=== PATIENT | male | born 1940 | race African-American/Black ===

== ENCOUNTER 2017-01-28 10:58 | Emergency (ER) | payer OTHER, BC ==
[~2017-01-28] VITALS: Ht 193 cm; Wt 94.3 kg
[~2017-01-28 10:58] MED LIST: ALLERGY RELIEF180 MG PO; ASPIRIN81 M2 PO; AZOR 10-40 MG1 EACH PO; CIALIS20 MG PO; FISH OIL 1,0001 EAC5 PO; FLEXERIL PO; FLOMAX PO; HYDROCHLOROTHIA25 M1 PO; HYDROCODON-ACE1 EACH PO; INDOMETHACIN 5050 M1 PO; KLOR-CON 10 ER10 MEQ PO; NASONEX17 GM NASAL; OMEGA PO; TAMSULOSIN HCL0.4 M1 PO; TOPROL XL100 MG PO; [UNRECOGNIZED DRUG - OTHER] PO
[2017-01-28] MEDS ORDERED: METFORMIN HCL500 MG PO (11:22)
[2017-01-28] MEDS ORDERED: CYCLOBENZAPRINE5 MG PO (12:47)
== END 2017-01-28 13:00 | disposition home or self-care (01) ==
LOC: ER 10:58
DX: M54.42 Lumbago with sciatica, left side (principal); M48.06 Spinal stenosis, lumbar region; I10 Essential (primary) hypertension; Z90.49 Acquired absence of other specified parts of digestive tract

== ENCOUNTER 2017-02-08 02:41 | Inpatient (IN) | payer OTHER, BC ==
[2017-02-08] VITALS (10 sets, daily range): BP systolic 96–142; BP diastolic 52–102
[~2017-02-08] VITALS: Ht 188 cm; Wt 83.6 kg
--- NOTE | ~2017-02-08 | HC ---
[facility] [place] [address] CONSULTATION Name: CANDELARIO HI Room #: 211-P [facility] IN .R.#: [id number] Admission: 02/08/17 Attend Phys: Primo Kim MD Discharge: Date of : 42 Report #: [id number] THIS REPORT FOR: //name// CC: Primo Hercules REASON FOR CONSULTATION: I was asked to evaluate the patient concerning polyarthritis and possible infection. HISTORY OF PRESENT ILLNESS: The patient is a 76-year-old with a history of chronic low back pain, gout, had an epidural injection on 02/07/2017. On 02/08/2017 he had two grossly bloody stools which were painless. He had some GI bleeding about a month or so prior to this, which was a short-term. He became lightheaded and presented to the Emergency Room for further treatment. The epidural injection did his back pain. He had previous right colon resection for perforation in 1994. His initial hemoglobin was 10. He continued to have bloody stools and underwent endoscopy, which showed some mild gastritis along with ulcerative type colitis involving the hepatic flexure region. Biopsy showed nonspecific colitis. He subsequently has seized bleeding. Follow up from GI service was that this was a localized ischemic area from some constipation. CT scan of the abdomen showed no other intra-abdominal pathology. Subsequently, developed a temperature of 102.3 on the 02/15/2017. He had flare up of arthritis involving both knees and his feet. He underwent a needle aspiration of his right knee and steroid injection. Today feels better, no pain in the right knee, still has some in the left and moderate amount of pain still in his feet, mostly the first metatarsal region. He also received 2 doses of colchicine yesterday. Fluid analysis showed 10,000 WBCs, 87% neutrophils. Gram stain was negative. Cultures are negative at 24 hours, crystals was negative, protein was 2.7. Overall, feels better today. He is afebrile. REVIEW OF SYSTEMS: Notes no rash, cough, sputum, nausea, vomiting, abdominal pain, back pain, diarrhea, or dysuria. ALLERGIES: None known. MEDICATIONS: As noted on his NOV. He has had no recent antibiotics. PAST MEDICAL HISTORY: Prostate cancer, diabetes, hypertension, gout, colon resection, chronic back pain with spinal stenosis and degenerative arthritis. SOCIAL HISTORY: Nonsmoker, no significant alcohol intake. He is retired from a local [employer]. FAMILY HISTORY: Noncontributory. [address] [address] CONSULTATION Name: CANDELARIO HI Room #: 211-P [facility]#: [id number] Admission: 02/08/17 Attend Phys: Primo Kim MD Discharge: Date of : 42 Report #: [id number] PHYSICAL EXAMINATION: VITAL SIGNS: He is afebrile, hemodynamically stable. GENERAL: He is alert and cooperative and pleasant, in no acute distress. SKIN: Unremarkable. LYMPH: Unremarkable. HEENT: Unremarkable. CHEST: Clear. HEART: Regular. ABDOMEN: Soft and nontender. EXTREMITIES: 1+ effusion in both knees. He had limited range of motion involving the right knee. Left knee had full range of motion. He had tenderness in both first MTP joints and throughout is forefoot. Upper extremities were unremarkable. NEUROLOGIC: Normal. LABORATORY STUDIES: Sodium 138, potassium 4.0, bicarbonate 28, creatinine 1, hemoglobin 9.1, platelet count 428,000, white cell count was 12.2. Right knee fluid, Gram stain, no organisms. Culture is negative at 24 hours. Blood cultures are negative to date. X-ray of the knees showed narrowing of the joints. Biopsy of the stomach showed gastroenteritis. Biopsy of his colon showed area of ulceration and colitis. Did not have features of inflammatory bowel disease. IMPRESSION: I am suspecting this is flare of crystalline arthritis, despite the negative crystalline analysis. I find that the sensitivity with this test is less than optimal. I would continue treatment program for gout. Considering his recurring symptoms with he is a reasonable candidate for allopurinol going forward. I do not see any evidence of active infection considering this is polyarthritis. We will hold on any antibiotic treatment at this time. We will follow up on aspiration cultures. <ELECTRONICALLY SIGNED> By: Roni Allen MD 02/17/17 1322 1021 1320 Roni Allen MD /nt
--- NOTE | ~2017-02-08 | HC ---
[facility] [place] [address] CONSULTATION Name: CANDELARIO HI Room #: 211-P [facility] IN ..#: [id number] Admission: 02/08/17 Attend Phys: Primo Kim MD Discharge: Date of : 42 Report #: [id number] THIS REPORT FOR: //name// CC: Primo Hercules HISTORY OF PRESENT ILLNESS: The patient is a 76-year-old -Algerian male with prior history of colon cancer, rectal bleeding, had a couple of falls, thought to be related due to his rectal bleeding. He notes during the fall, he twisted his right knee. He has had further GI evaluation with EGD showing gastritis and Schatzki's ring, colonoscopy showing ileocolonic anastomosis and sigmoiditis. He appears to be doing well from a GI perspective with his hemoglobin remaining stable. Big issue for him now is significant pain of both knees and ankles. He notes that premorbidly he was ambulatory without gait aids, but after the falls, the twisting of the right knee and the various procedures within his hospital stay, he notes that the pain has significantly worsened. It involves both knees and both ankles. He thinks it is his gout acting up. He now is basically nonambulatory. PAST MEDICAL HISTORY: Includes history of some chronic low back pain, he has had prior epidural steroid injection. History of colon cancer, diabetes mellitus, BPH, gout, and arthritis. FAMILY HISTORY: Father, breast cancer; sister, breast cancer, pancreatic cancer, and malignant melanoma. HABITS: No history of tobacco or ETOH. SOCIAL HISTORY: Lives in a house with his , 2 steps in with 12 inside. Did not utilize gait aids and was noted to be independent with ADLs. REVIEW OF SYSTEMS: No complaints of chest pain, shortness of breath or abdominal discomfort. Main complaint is the pain involving his knees and his ankles. PHYSICAL EXAMINATION: GENERAL: He is a pleasant 76-year-old -Algerian male who appears somewhat younger than stated age. VITAL SIGNS: Temperature is 102.3, pulse 86, respirations 18, blood pressure is 128/75. HEENT: Appeared to be benign. Facies are symmetric. EXTREMITIES: Functional range of motion of both upper extremities without obvious focal weakness. He has good strength. In his lower extremities, he complained of suprapatellar pain. There is no actual swelling or obvious effusion. He does have definite pain in medial joint lines bilaterally. I could range his left knee more easily than his right. His right knee is very tender with knee range of motion and I could only flex him to about [address] [address] CONSULTATION Name: CANDELARIO HI Room #: 211-P [facility] IN ..#: [id number] Admission: 02/08/17 Attend Phys: Primo Kim MD Discharge: Date of : 42 Report #: [id number] before he had significant increased pain. He also has pain of both ankles. There was no actual swelling around either malleoli. He was diffusely tender. I could range his ankles, but he had pain not only involving the ankles, but involving the knees bilaterally. Functionally, he is moving slowly with sit to stand max assist. X-rays showed moderately severe tricompartmental osteoarthritis involving the left knee and the right knee. No acute fracture. Ankle x-ray showed some mild soft tissue swelling without evidence of acute ankle fracture or dislocation. Labs include uric acid, which was normal at 5.4. ASSESSMENT: A 76-year-old -Algerian male with the following problem list: 1. Acute febrile polyarthritis of both knees and ankles. He has a history of gout, but his uric acid is only 5.4. He notes he did twist that right knee during one of his falls and his symptoms are definitely worse involving the right knee than the left knee. He has moderately severe arthritis of his knees, but was nevertheless ambulatory prior to this acute event. Last white blood count was 11.9. 2. Prior history of colon cancer with rectal bleeding with GI workup as delineated above. 3. Acute renal failure, probable acute tubular necrosis noted to be resolving. 4. Hypertension. 5. Diabetes mellitus. 6. Benign prostatic hypertrophy. 7. History of chronic back pain with recent epidural steroid injection. 8. History of colon cancer with colon resection in 1994. PLAN: We will defer further diagnostic workup to primary care. We would certainly consider orthopedic consultation. Question of rheumatology would be helpful. We will add occupational therapy as already he has physical therapy involved. We will be glad to follow regarding his rehab therapy needs. By: 1708 0042 John Rodriguez MD /nt
--- NOTE | ~2017-02-08 | P ---
[facility] [place] [address] PROCEDURE REPORT Name: CANDELARIO HI Jayy Room #: 211-P [facility] IN M.R.#: [id number] Admission: 02/08/17 Attend Phys: Primo Kim MD Discharge: Date of : 42 Report #: [id number] THIS REPORT FOR: //name// CC: Primo Hercules DATE OF SERVICE: 02/13/2017 PROCEDURE: Flexible sigmoidoscopy with control of hemorrhage. INDICATION FOR PROCEDURE: Painless dark maroon stools per rectum, uncertain etiology. The patient had an ulcer in the sigmoid colon on previous flex sig. I am not certain what is bleeding, but flexible sigmoidoscopy is being performed because on the ongoing hematochezia and melena. Informed consent for this procedure was obtained prior to the administration of any medication. The risks of the procedure which include bleeding, perforation, infection, complications of sedation and the possibility I could miss something have been explained to the patient and he has indicated his consent by signing. Fentanyl 100 mcg and Versed 6 mg was slowly titrated before and during this procedure for patient comfort by the GI nursing staff under my direction. A digital rectal exam was performed and no abnormalities were palpated. The Tbricksn colonoscope was introduced through the anal sphincter and advanced under direct visualization to the 50 cm emma, as this is where the bleeding stopped, above that was brown stool. Findings are noted on withdrawal of the scope. I tried to clear out all blood from the descending colon and was successful in doing so. At 40 cm, there were multiple ulcerations that were white based, nonbleeding, one, however, had a visible vessel and it appeared to be oozing, so I bicapped it with a BICAP cautery system and washed it with a water jet and it was found to be stable. I came back and visualized it multiple times during the rest of the flexible sigmoidoscopy as I cleared the blood from the distal colon and rectum. To be certain that there was no other bleeding site and there was not. No other abnormalities were seen. Retroflex view in the rectum did not reveal any abnormalities. The scope was withdrawn. The patient went to the recovery area in stable condition. He tolerated the procedure well. IMPRESSION: Bleeding ulceration at 40 cm, bicapped as above successfully. There was no evidence of any further bleeding after that, hopefully that was the only site that the blood was coming from, I suspect this was probably a localized ischemia area that has now re-perfused as it looks pink and the mucosa looks more normal. Recommendations would be to try to avoid constipation, as this will only reoccur with pressure from hard stool on the mucosal lining. We will put him on some [address] [address] PROCEDURE REPORT Name: CANDELARIO HI Room #: 211-P [facility] IN M.R.#: [id number] Admission: 02/08/17 Attend Phys: Primo Kim MD Discharge: Date of : 42 Report #: [id number] Colace 1 p.o. b.i.d. and fiber supplements if necessary and he should be on a high fiber diet and drink 8 glasses of liquid a day. Thank you very much once again for allowing me to participate in his care, Dr. Kim. <ELECTRONICALLY SIGNED> By: Chana Sotomayor DO 02/14/17 0949 1750 0316 Chana Sotomayor DO /nt
--- NOTE | ~2017-02-08 | S ---
[facility] [place] [address] SURGICAL PATH RPT PROCEDURE Name: CANDELARIO HI Room #: 211-P ADM IN M.R.#: [id number] Admission: 02/08/17 Date of : 42 Discharge: Report #: [id number] Path Case #: [id number] PATHOLOGY REPORT COLLECTION DATE: 02/11/2017 RECEIVED DATE: 02/12/2017 SUBMITTING PHYS: Dr. Rodney Avalos OTHER PHYS: Dr. Dyllan Kim SPECIMEN(S) RECEIVED: A.Bx of gastritis B.Bx of sigmoid colitis * * * * * * * * * * * * FINAL DIAGNOSIS: A. "BX of gastritis", biopsy: - Gastric mucosa with mild reactive changes and mild chronic inflammation. - Negative H. pylori immunohistochemical stain (block A1); control reacted appropriately. B. "BX of sigmoid colitis", biopsy: - Colonic mucosa with reactive/hyperplastic changes, reactive appearing lymphoid aggregates and focal active colitis (see comment). COMMENT: Focal active colitis can be seen in resolving infectious type colitis, incidentally with bowel preparation and quiescent chronic idiopathic inflammatory bowel disease. No dysplasia is seen. Clinical and endoscopic correlation is recommended. PATHOLOGIST: Autumn Dye M.D. REPORT ELECTRONICALLY SIGNED BY: Autumn Dye M.D. DATE/TIME: 02/13/2017 13:45 * * * * * * * * * * * * GROSS PATHOLOGY: A. Received in formalin labeled "Candelario Hi, BX of gastritis," are 3 segments of vann soft tissue measuring 1.2 x 0.2 x 0.2 cm in aggregate dimensions and ranging from 0.2 to 0.5 cm in maximum dimension. The specimen is submitted entirely in cassette A1. B. Received in formalin labeled "Candelario Hi, BX of sigmoid colitis," are 2 segments of vann soft tissue measuring 1.0 x 0.2 x 0.2 cm in aggregate dimensions and ranging from 0.5 to 0.5 cm in maximum dimension. The specimen is submitted entirely in cassette B1. (SONDRA; 02/12/2017) [address] [place] [address] SURGICAL PATH RPT PROCEDURE Name: CANDELARIO HI Jayy Room #: 211-P [facility] IN M.R.#: [id number] Admission: 02/08/17 Date of : 42 Discharge: Report #: [id number] Path Case #: [id number] CLINICAL HISTORY: GI anemia INITIAL CPT CODE(S): A; 72258, 86625 B; 10105 Professional services performed by [facility] at [address], [place] [address] Technical services performed by [facility] at [address] [place] [address], [facility] [address] [place] [address]. [facility] [address] [address] PHONE: [phone] DIRECTOR: Dario Duran M.D. * * * END OF REPORT * * *
--- NOTE | ~2017-02-08 | HC ---
[facility] [place] [address] CONSULTATION Name: CANDELARIO HI Room #: 211-P [facility] IN ..#: [id number] Admission: 02/08/17 Attend Phys: Primo Kim MD Discharge: Date of : 42 Report #: [id number] THIS REPORT FOR: //name// CC: Primo Hercules DATE OF SERVICE: 02/16/2017 CHIEF COMPLAINT: Bilateral lower extremity pain at both knees and both ankles with probable gout and possible infection. HISTORY OF PRESENT ILLNESS: This 76-year-old gentleman has a previous history of gout, which has been untreated in the past. He also has a number of other medical problems. He fell 1 week ago spraining the right knee and right ankle. He was admitted for general malaise and weakness. His right lower extremity injuries were evaluated then with x-rays of the knee and ankle, which revealed no evidence of fracture, but moderate degenerative change. He has been recovering from his other more general medical issues, but is having ongoing lower extremity joint discomfort. At this time, he has some pain and swelling in both knees and both ankles. His symptoms are greater on the right side than on the left. He has had repeat x-rays of the right knee and ankle showing again no evidence of fracture. He has 1 episode of temperature elevation. His white count has been normal. At the time of my evaluation, he is resting fairly comfortably in a recliner. He is alert and oriented. He notes he does have generalized lower extremity discomfort mostly at the right knee and the right ankle with similar but less severe symptoms at the left knee and the left ankle. He notes symptoms are aggravated by movement or weightbearing. He is not having much discomfort in the upper extremities at this time. Objectively, the right knee demonstrates a sizeable knee effusion. There is some warmth, but no redness. There is some generalized joint irritability consistent with inflammation. There is minimal joint crepitus. The skin is intact. The right calf reveals no obvious swelling or bruising. There is no localized soft tissue tenderness. The ankle and foot revealed mild generalized edema. He does have some discomfort with movement of the ankle. There appears to be a mild knee effusion, but not nearly as significant as at the right knee. Findings would suggest some warmth, but no redness about the ankle. This seems consistent with synovitis and a joint effusion. He notes that his symptoms in the right lower leg and ankle are actually better today and he has been up with therapy, walking on the ankle with only moderate discomfort. The left lower extremity reveals similar findings at the knee and ankle, but less severe than on the right. There is a mild left knee joint effusion, but better range of motion and less discomfort. The skin is intact. The left ankle also reveals mild swelling and some generalized discomfort consistent with ankle synovitis. There is no obvious deformity or instability. Neurologic status in both lower extremities appeared to be normal. [address] [address] CONSULTATION Name: CANDELARIO HI Room #: 211-P [facility] IN ..#: [id number] Admission: 02/08/17 Attend Phys: Primo Kim MD Discharge: Date of : 42 Report #: [id number] X-rays of both knees and the right ankle have revealed no obvious fractures, but evidence of some degenerative change. IMPRESSION AND PLAN: In summary, this gentleman has a history of gout and had a minor traumatic injury 1 week ago. He now has diffuse symptoms in both knees and both ankles and findings seem most suggestive of a gouty flare. In addition, it is difficult to rule out infection, although this seems less likely to me. I think it is reasonable to get a fluid specimen for culture and for synovial fluid analysis and crystals. I think the best option would be to aspirate the right knee where this morning, he states he is most symptomatic and there is a large knee effusion. He has agreed and I will go ahead with joint aspiration and we will send the specimen for synovial fluid analysis, cell count, crystals and culture. I think we can probably go ahead with empiric injection of the right knee using 40 mg of Depo-Medrol today as well. We will see what the lab results and his subjective symptomatic response may be, which will guide further treatment. Thank you for allowing me to participate in his care. <ELECTRONICALLY SIGNED> By: John Ren MD 02/17/17 1051 1143 1734 John Ren MD /nt
--- NOTE | ~2017-02-08 | EKG ---
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
[~2017-02-08 02:41] MED LIST changes: +CYCLOBENZAPRINE5 MG PO; +METFORMIN HCL500 MG PO
[2017-02-08 03:04] LABS: ABSOLUTE NEUTROPHILS 9.5 thou/uL (1.4-8.2); BASOPHILS 0.4 % (0.0-2.0); EOSINOPHILS 0.1 % (0.0-3.0); HEMATOCRIT 30.3 % (42.0-52.0); HEMOGLOBIN 10.2 gm/dL (14.0-18.0); LYMPHOCYTES 12.8 % (24.0-44.0); MCH 30.6 pg (26.0-34.0); MCHC 33.7 g/dL (28.0-37.0); MCV 90.7 fL (80.0-100.0); PLATELET COUNT 304 thou/uL (150-400); POLYS 75.7 % (36.0-66.0); RBC 3.35 mil/uL (4.50-6.00); RDW 13.6 % (10.5-14.5); WBC 12.6 thou/uL (4.0-11.0)
[2017-02-08 03:05] LABS: MANUAL DIFF NO
[2017-02-08 03:13] LABS: ANION GAP 14 mmol/L (7-16); BUN 36 mg/dL (7-18); CALCIUM 8.8 mg/dL (8.5-10.1); CHLORIDE 97 mmol/L (98-107); CO2 24 mmol/L (21-32); CREATININE 2.9 mg/dL (0.7-1.3); GLUCOSE 319 mg/dL (74-106); POTASSIUM 3.2 mmol/L (3.5-5.1); SODIUM 135 mmol/L (136-145)
[2017-02-08 03:21] LABS: ALBUMIN 2.8 g/dL (3.4-5.0); ALKALINE PHOSPHATASE 128 U/L (46-116); APTT 27.1 Seconds (24.5-32.8); INR 1.2; NT-PRO BRAIN NAT PEPTIDE 394 pg/mL (<300); PROTIME 12.8 Seconds (9.3-11.4); SGOT 24 U/L (15-37); SGPT 33 U/L (30-65); TOTAL BILIRUBIN 0.5 mg/dL (<0.1-1.0); TOTAL PROTEIN 7.1 g/dL (6.4-8.2); TROPONIN-I < 0.04 ng/mL (<0.04-0.07)
[2017-02-08 08:24] LABS: MAGNESIUM 2.3 mg/dL (1.8-2.4)
[2017-02-08 10:10] LABS: HEMOGLOBIN 9.7 gm/dL (14.0-18.0)
[2017-02-08 16:49] LABS: HEMATOCRIT 25.4 % (42.0-52.0); HEMOGLOBIN 9.1 gm/dL (14.0-18.0)
[2017-02-09 03:29] LABS: BASOPHILS 0.1 % (0.0-2.0); HEMATOCRIT 25.7 % (42.0-52.0); HEMOGLOBIN 8.9 gm/dL (14.0-18.0); LYMPHOCYTES 11.9 % (24.0-44.0); MCHC 34.6 g/dL (28.0-37.0); MCV 89.5 fL (80.0-100.0); MONOCYTES 5.2 % (1.0-8.0); PLATELET COUNT 313 thou/uL (150-400); POLYS 82.8 % (36.0-66.0); RBC 2.87 mil/uL (4.50-6.00); RDW 13.5 % (10.5-14.5); WBC 9.7 thou/uL (4.0-11.0)
[2017-02-09 03:33] LABS: MANUAL DIFF NO
[2017-02-09 03:36] VITALS: BP 117/71
[2017-02-09 03:42] LABS: CALCIUM 8.2 mg/dL (8.5-10.1)
[2017-02-09 03:48] LABS: CREATININE 1.2 mg/dL (0.7-1.3)
[2017-02-09 08:00] VITALS: BP 127/75
[2017-02-09 11:30] VITALS: BP 128/63
[2017-02-09 15:50] VITALS: BP 131/72
[2017-02-09 20:35] VITALS: BP 145/75
[2017-02-09 23:06] VITALS: BP 155/83
[2017-02-10 03:01] LABS: HEMATOCRIT 22.8 % (42.0-52.0); MCH 31.4 pg (26.0-34.0); MCHC 35.2 g/dL (28.0-37.0); MCV 89.4 fL (80.0-100.0); RBC 2.55 mil/uL (4.50-6.00); RDW 13.4 % (10.5-14.5); WBC 7.2 thou/uL (4.0-11.0)
[2017-02-10 03:02] VITALS: BP 158/89
[2017-02-10 03:14] LABS: CALCIUM 8.1 mg/dL (8.5-10.1); CREATININE 0.9 mg/dL (0.7-1.3); POTASSIUM 3.2 mmol/L (3.5-5.1)
[2017-02-10 07:05] VITALS: BP 138/81
[2017-02-10 11:40] VITALS: BP 132/73
[2017-02-10 16:00] VITALS: BP 151/83
[2017-02-10 20:25] VITALS: BP 147/89
[2017-02-11] VITALS (9 sets, daily range): BP systolic 109–161; BP diastolic 59–93
[2017-02-11 05:16] LABS: HEMATOCRIT 24.4 % (42.0-52.0); HEMOGLOBIN 8.6 gm/dL (14.0-18.0); MCH 31.2 pg (26.0-34.0); MCHC 35.2 g/dL (28.0-37.0); MCV 88.8 fL (80.0-100.0); RBC 2.75 mil/uL (4.50-6.00); RDW 13.2 % (10.5-14.5); WBC 8.2 thou/uL (4.0-11.0)
[2017-02-11 05:21] LABS: CALCIUM 8.8 mg/dL (8.5-10.1); CREATININE 0.9 mg/dL (0.7-1.3); POTASSIUM 3.4 mmol/L (3.5-5.1)
[2017-02-12] VITALS (7 sets, daily range): BP systolic 113–140; BP diastolic 65–86
[2017-02-12 02:30] LABS: HEMATOCRIT 26.1 % (42.0-52.0); HEMOGLOBIN 9.1 gm/dL (14.0-18.0); MCH 31.1 pg (26.0-34.0); MCHC 34.9 g/dL (28.0-37.0); MCV 89.1 fL (80.0-100.0); RBC 2.93 mil/uL (4.50-6.00); RDW 13.2 % (10.5-14.5); WBC 7.7 thou/uL (4.0-11.0)
[2017-02-12 02:40] LABS: CALCIUM 9.1 mg/dL (8.5-10.1); CREATININE 0.9 mg/dL (0.7-1.3); POTASSIUM 3.8 mmol/L (3.5-5.1)
[2017-02-12 12:46] LABS: ABSOLUTE NEUTROPHILS 6.9 thou/uL (1.4-8.2); BASOPHILS 0.8 % (0.0-2.0); EOSINOPHILS 2.8 % (0.0-3.0); HEMATOCRIT 26.1 % (42.0-52.0); LYMPHOCYTES 20.2 % (24.0-44.0); MCH 31.5 pg (26.0-34.0); MCHC 34.6 g/dL (28.0-37.0); MCV 91.1 fL (80.0-100.0); MONOCYTES 9.5 % (1.0-8.0); POLYS 66.7 % (36.0-66.0); RBC 2.87 mil/uL (4.50-6.00); RDW 13.1 % (10.5-14.5); WBC 10.3 thou/uL (4.0-11.0)
[2017-02-12 12:47] LABS: MANUAL DIFF NO; PLATELET COUNT 553 thou/uL (150-400)
[2017-02-13 03:27] LABS: HEMATOCRIT 22.7 % (42.0-52.0); HEMOGLOBIN 7.8 gm/dL (14.0-18.0); MCH 31.3 pg (26.0-34.0); MCHC 34.2 g/dL (28.0-37.0); MCV 91.5 fL (80.0-100.0); RBC 2.48 mil/uL (4.50-6.00); RDW 13.2 % (10.5-14.5); WBC 11.3 thou/uL (4.0-11.0)
[2017-02-13 03:39] LABS: CALCIUM 8.9 mg/dL (8.5-10.1); CREATININE 1.6 mg/dL (0.7-1.3); POTASSIUM 3.5 mmol/L (3.5-5.1)
[2017-02-13 04:33] VITALS: BP 106/65
[2017-02-13 07:41] VITALS: BP 126/61
[2017-02-13 11:00] VITALS: BP 125/61
[2017-02-13 11:05] LABS: HEMATOCRIT 22.1 % (42.0-52.0); HEMOGLOBIN 7.6 gm/dL (14.0-18.0)
[2017-02-13 18:37] LABS: HEMOGLOBIN 7.2 gm/dL (14.0-18.0)
[2017-02-13 19:39] VITALS: BP 109/60
[2017-02-13 22:55] LABS: HEMATOCRIT 18.6 % (42.0-52.0)
[2017-02-13 23:04] LABS: HEMOGLOBIN 6.5 gm/dL (14.0-18.0)
[2017-02-13 23:14] VITALS: BP 107/57
[2017-02-14] VITALS (8 sets, daily range): BP systolic 112–140; BP diastolic 56–84
[2017-02-14 06:45] LABS: HEMOGLOBIN 7.9 gm/dL (14.0-18.0)
[2017-02-14 09:06] LABS: CALCIUM 8.5 mg/dL (8.5-10.1); CREATININE 1.2 mg/dL (0.7-1.3); POTASSIUM 3.4 mmol/L (3.5-5.1)
[2017-02-14 11:47] LABS: HEMATOCRIT 27.3 % (42.0-52.0); HEMOGLOBIN 9.4 gm/dL (14.0-18.0)
[2017-02-15 03:37] LABS: CALCIUM 8.6 mg/dL (8.5-10.1); CREATININE 1.1 mg/dL (0.7-1.3); POTASSIUM 3.5 mmol/L (3.5-5.1)
[2017-02-15 04:27] VITALS: BP 115/71
[2017-02-15 08:00] VITALS: BP 130/76
[2017-02-15 10:06] LABS: MCH 31.1 pg (26.0-34.0); MCHC 34.5 g/dL (28.0-37.0); MCV 90.2 fL (80.0-100.0); RBC 2.89 mil/uL (4.50-6.00); RDW 13.5 % (10.5-14.5); WBC 11.9 thou/uL (4.0-11.0)
[2017-02-15 10:15] LABS: CALCIUM 8.5 mg/dL (8.5-10.1); CREATININE 1.1 mg/dL (0.7-1.3); POTASSIUM 3.5 mmol/L (3.5-5.1)
[2017-02-15 12:00] VITALS: BP 123/73
[2017-02-15 16:47] VITALS: BP 128/75
[2017-02-15 19:23] VITALS: BP 131/54
[2017-02-16 03:23] LABS: CALCIUM 8.7 mg/dL (8.5-10.1); POTASSIUM 3.7 mmol/L (3.5-5.1)
[2017-02-16 03:25] VITALS: BP 131/70
[2017-02-16 07:34] VITALS: BP 125/68
[2017-02-16 09:00] LABS: HEMOGLOBIN 8.9 gm/dL (14.0-18.0); MCH 31.7 pg (26.0-34.0); MCHC 34.1 g/dL (28.0-37.0); MCV 92.8 fL (80.0-100.0); RBC 2.8 mil/uL (4.50-6.00); RDW 13.9 % (10.5-14.5)
[2017-02-16 12:33] LABS: CLARITY CLOUDY; COLOR RED; TOTAL VOLUME 31 mL
[2017-02-16 12:44] LABS: BF NUCLEATED CELLS 10034; BF RBC 29528
[2017-02-16 12:45] LABS: MANUAL DIFF YES
[2017-02-16 13:41] LABS: BF COMMENTS MONOCYTES 2; BF MACROPHAGE 0; BF NEUTROPHILS 87
[2017-02-16 15:41] VITALS: BP 113/60
[2017-02-16 21:03] VITALS: BP 122/64
[2017-02-17 02:55] LABS: HEMATOCRIT 26.1 % (42.0-52.0); HEMOGLOBIN 9.1 gm/dL (14.0-18.0); MCH 31.5 pg (26.0-34.0); MCHC 34.7 g/dL (28.0-37.0); MCV 90.8 fL (80.0-100.0); RBC 2.87 mil/uL (4.50-6.00); RDW 13.9 % (10.5-14.5); WBC 12.2 thou/uL (4.0-11.0)
[2017-02-17 02:59] LABS: CALCIUM 8.7 mg/dL (8.5-10.1)
[2017-02-17 04:00] VITALS: BP 128/72
[2017-02-17 06:06] LABS: BODY FLUID PROTEIN 2.7 g/dL (())
[2017-02-17 08:35] VITALS: BP 130/66
[2017-02-17 12:32] VITALS: BP 115/62
[2017-02-17 15:44] VITALS: BP 127/74
[2017-02-17 19:38] VITALS: BP 124/61
[2017-02-18 02:57] LABS: HEMATOCRIT 25.3 % (42.0-52.0); HEMOGLOBIN 8.7 gm/dL (14.0-18.0); MCHC 34.2 g/dL (28.0-37.0); MCV 90.5 fL (80.0-100.0); RBC 2.8 mil/uL (4.50-6.00); RDW 13.6 % (10.5-14.5); WBC 12.6 thou/uL (4.0-11.0)
[2017-02-18 03:05] LABS: CALCIUM 8.4 mg/dL (8.5-10.1); POTASSIUM 3.7 mmol/L (3.5-5.1)
[2017-02-18 04:14] VITALS: BP 163/101
[2017-02-18 06:12] VITALS: BP 115/79
[2017-02-18 07:41] VITALS: BP 107/62
[2017-02-18 11:29] VITALS: BP 120/78
[2017-02-18] MEDS ORDERED: NORVASC 5 MG TAB5 MG PO (12:16)
[2017-02-18] MEDS ORDERED: MIRALAX17 GM PO (12:17)
[2017-02-18] MEDS ORDERED: COLCHICINE0.6 MG PO (12:18)
[2017-02-18] MEDS ORDERED: PANTOPRAZOLE SO40 M1 PO (12:18)
[2017-02-18 16:19] VITALS: BP 120/78
[2017-02-18 16:25] VITALS: BP 123/70
== END 2017-02-18 17:45 | disposition home health service (06) | DRG 377 ==
LOC: ER 02:41 → EROBS 04:29 → 2N 04:29
PROVIDERS: Emergency Medicine; Hospitalist; Internal Medicine; Internal Medicine Gastroenterology; Nurse Practitioner Adult Health; Nurse Practitioner Family; Orthopaedic Surgery
DX: K92.2 Gastrointestinal hemorrhage, unspecified (principal); N17.0 Acute kidney failure with tubular necrosis; D62 Acute posthemorrhagic anemia; K63.3 Ulcer of intestine; N17.9 Acute kidney failure, unspecified; L89.90 Pressure ulcer of unspecified site, unspecified stage; I10 Essential (primary) hypertension; D64.9 Anemia, unspecified; G89.29 Other chronic pain; M54.5 Low back pain; E11.9 Type 2 diabetes mellitus without complications; N40.0 Benign prostatic hyperplasia without lower urinary tract symptoms; M13.0 Polyarthritis, unspecified; M10.9 Gout, unspecified; M48.00 Spinal stenosis, site unspecified; K59.00 Constipation, unspecified; E87.5 Hyperkalemia; Z79.82 Long term (current) use of aspirin; Z79.899 Other long term (current) drug therapy; Z80.8 Family history of malignant neoplasm of other organs or systems; Z80.3 Family history of malignant neoplasm of breast; Z85.038 Personal history of other malignant neoplasm of large intestine
CPT/HCPCS: 10081; 62110; 70005